=== PATIENT | male | born 1995 | race Caucasian/White ===

== ENCOUNTER 2016-12-12 02:26 | Emergency (ER) | payer SELFPAY ==
[~2016-12-12] VITALS: Ht 170.2 cm; Wt 88.5 kg
[~2016-12-12 02:26] MED LIST: UNOBMED
--- NOTE | 2016-12-12 02:37 | Emergency Room Report ---
History of Present Illness General Chief Complaint: Alcohol Intoxication Source: Patient (Sukh Mathews M.D.) Present Illness HPI The patient is brought in after being found unresponsive after alcohol consumption at the [facility]. Paramedics were summoned and evaluated the patient. Is transported by S. They claim there is no evidence of trauma. Uncertain if there patient has a gag reflex. She is been fighting they have wasted and soft restraints. (Sukh Mathews M.D.) Allergies: Coded Allergies: UNABLE TO ASSESS (Unverified , 12/12/16) Patient History Limited by: medical condition Past Medical History: see triage record Social History: Reports: alcohol use Reviewed Nursing Documentation: PMH: Agreed, PSxH: Agreed (Sukh Mathews M.D.) Nursing Documentation-PMH Past Medical History Deferred: Pt Cognitively Impaired (Sukh Mathews M.D.) Review of Systems All Other Systems: limited (Sukh Mathews M.D.) Physical Exam Vital Signs Date Time Temp Pulse Resp B/P Pulse Ox O2 Delivery O2 Flow Rate FiO2 12/12/16 02:22 94 16 124/64 98 Room Air Sp02 EP Interpretation: reviewed, normal General Appearance: no apparent distress, Stupor Head: normocephalic Eyes: bilateral eye PERRL, bilateral eye Scleral Injection ENT: moist mucus membranes Neck: supple, no bony tend Respiratory: lungs clear, normal breath sounds Cardiovascular #1: regular rate, rhythm Cardiovascular #2: 2+ radial (R) Gastrointestinal: normal inspection, non tender, no mass, non-distended, abnormal bowel sounds - decreased Genitourinary: normal inspection Musculoskeletal: back normal, other - no deformity Neurologic: other - stupor, min response to pain, + gag Psychiatric: other - stupor Skin: normal inspection, warm/dry (Sukh Mathews M.D.) Medical Decision Making Diagnostic Impression: Primary Impression: Acute alcoholic intoxication Qualified Codes: F10.929 - Alcohol use, unspecified with intoxication, unspecified ER Course The patient presents with stupor with alcohol in his breath. Differential includes acute intoxication, with light abnormality, brain bleeds, other toxic ingestion. Evaluation will do a CT of head and neck and chest x-ray. Lastly run also. The patient will receive IV hydration and observation. There is a gag and therefore does not need to be intubated at this time. Labs with elevated alcohol. CT head and neck no fx or bleed. CXR normal. Patient now nodding yes and no to questions. Still lethargic. Signed out to Dr. Arambula. Laboratory Tests Test 12/12/16 02:49 White Blood Count 5.9 K/UL (4.8-10.8) Red Blood Count 5.85 M/UL (4.70-6.10) Hemoglobin 16.7 G/DL (14.2-18.0) Hematocrit 51.1 % (42.0-52.0) Mean Corpuscular Volume 87 FL (80-99) Mean Corpuscular Hemoglobin 28.6 PG (27.0-31.0) Mean Corpuscular Hemoglobin Concent 32.7 G/DL (32.0-36.0) Red Cell Distribution Width 11.3 % (11.6-14.8) L Platelet Count 300 K/UL (150-450) Mean Platelet Volume 8.4 FL (6.5-10.1) Neutrophils (%) (Auto) 57.7 % (45.0-75.0) Lymphocytes (%) (Auto) 33.4 % (20.0-45.0) Monocytes (%) (Auto) 5.0 % (1.0-10.0) Eosinophils (%) (Auto) 2.6 % (0.0-3.0) Basophils (%) (Auto) 1.2 % (0.0-2.0) Sodium Level 144 mEQ/L (135-145) Potassium Level 3.7 mEQ/L (3.4-4.9) Chloride Level 101 mEQ/L (98-107) Carbon Dioxide Level 23 mEQ/L (20-30) Anion Gap 20 (5-15) H Blood Urea Nitrogen 9 mg/dL (7-23) Creatinine 0.9 mg/dL (0.7-1.2) Estimate Glomerular Filtration Rate > 60 mL/min (>60) Glucose Level 108 mg/dL (74-106) H Calcium Level 9.4 mg/dL (8.6-10.2) Total Bilirubin 0.5 mg/dL (0.0-1.2) Aspartate Amino Transferase (AST) 18 U/L (5-40) Alanine Aminotransferase (ALT) 16 U/L (3-41) Alkaline Phosphatase 54 U/L (40-129) Total Creatine Kinase 122 U/L (38-174) Total Protein 8.0 g/dL (6.6-8.7) Albumin 4.7 g/dL (3.5-5.2) Globulin 3.3 g/dL Albumin/Globulin Ratio 1.4 (1.0-2.7) Salicylates Level < 1 mg/dL (10-30) L Urine Opiates Screen Negative (NEGATIVE) Acetaminophen Level < 10 ug/mL (10-30) L Urine Barbiturates Screen Negative (NEGATIVE) Phencyclidine (PCP) Screen Negative (NEGATIVE) Urine Amphetamines Screen Negative (NEGATIVE) Urine Benzodiazepines Screen Negative (NEGATIVE) Urine Cocaine Screen Negative (NEGATIVE) Urine Marijuana (THC) Screen Positive (NEGATIVE) H Serum Alcohol 267 mg/dL (Sukh Mathews M.D.) ER Course Patient was noted to have initially confused mental status. Patient had gradual improvement of neurologic status. At the time of discharge the patient was alert and ambulatory without assistance and had a good plan for self care. Patient was advised to stop drinking alcohol. And to followup with outpatient therapy for alcohol treatment. (Marquise Arambula) EKG Diagnostic Results Rate: normal Rhythm: NSR ST Segments: no acute changes - early repol (Sukh Mathews M.D.) Rhythm Strip Diag. Results EP Interpretation: yes Rhythm: NSR, no PVC's, no ectopy (Sukh Mathews M.D.) Chest X-Ray Diagnostic Results Chest X-Ray Diagnostic Results : Chest X-Ray Ordered: Yes # of Views/Limited/Complete: 1 View Indication: Other EP Interpretation: Yes Interpretation: no consolidation, no effusion, no pneumothorax, no acute cardiopulmonary disease Impression: No acute disease Interpreting ER Provider: Electronically signed by Sukh Mathews MD (Sukh Mathews M.D.) CT/MRI/US Diagnostic Results CT/MRI/US Diagnostic Results : Imaging Test Ordered: head/c spine Impression no bleed/fractures (Sukh Mathews M.D.) Status: improved (Sukh Mathews M.D.) Status: improved (Marquise Arambula) Disposition: HOME, SELF-CARE Condition: Stable Sukh Mathews M.D. Dec 12, 2016 02:37 Marquise Arambula Dec 12, 2016 09:19
[2016-12-12 02:40] VITALS: BP 124/64
[2016-12-12 03:01] LABS: BASOPHILS % (AUTO) 1.2 % (0.0-2.0); EOSINOPHILS % (AUTO) 2.6 % (0.0-3.0); LYMPHOCYTES % (AUTO) 33.4 % (20.0-45.0); MEAN CORPUSCULAR HEMOGLOBIN 28.6 PG (27.0-31.0); MEAN CORPUSCULAR HGB CONC 32.7 G/DL (32.0-36.0); MEAN CORPUSCULAR VOLUME 87 FL (80-99); MEAN PLATELET VOLUME 8.4 FL (6.5-10.1); NEUTROPHILS % (AUTO) 57.7 % (45.0-75.0); PLATELET COUNT 300 K/UL (150-450); RED BLOOD COUNT 5.85 M/UL (4.70-6.10); RED CELL DISTRIBUTION WIDTH 11.3 % (11.6-14.8); WHITE BLOOD COUNT 5.9 K/UL (4.8-10.8)
[2016-12-12 03:18] LABS: ACETAMINOPHEN < 10 ug/mL (10-30); ALANINE AMINOTRANSFERASE 16 U/L (3-41); ALBUMIN/GLOBULIN RATIO 1.4 (1.0-2.7); ALCOHOL 267 mg/dL; ANION GAP 20 (5-15); ASPARTATE AMINO TRANSFERASE 18 U/L (5-40); CALCIUM 9.4 mg/dL (8.6-10.2); CARBON DIOXIDE 23 mEQ/L (20-30); CHLORIDE 101 mEQ/L (98-107); CREATININE 0.9 mg/dL (0.7-1.2); GLOMERULAR FILTRATION RATE > 60 mL/min (>60); HEMOLYSIS 7; POTASSIUM 3.7 mEQ/L (3.4-4.9); SODIUM 144 mEQ/L (135-145)
[2016-12-12 04:41] VITALS: BP 120/68
[2016-12-12 06:50] VITALS: BP 126/66
[2016-12-12 09:09] VITALS: BP 123/67
[2016-12-12 09:17] VITALS: BP 123/67
--- NOTE | 2016-12-12 10:23 | Diagnostic Imaging Report ---
Indication: Altered level of consciousness/pain Technique: CT cervical spine was performed utilizing automated exposure control without intravenous contrast material. Axial and coronal images were generated. CT dose: Total DLP 1369 mGycm; CTDI vol 70.4 mGy Comparison: None Findings: There is no acute fracture. Cervical alignment is within normal limits. Prevertebral soft tissues are within normal limits. The visualized lung apices are clear. Impression: No acute fracture or cervical malalignment. The CT scanner at [facility] is accredited by the [employer] and the scans are performed using protocols designed to limit radiation exposure to as low as reasonably achievable to attain images of sufficient resolution adequate for diagnostic evaluation.
--- NOTE | 2016-12-12 10:25 | Diagnostic Imaging Report ---
Indication: Altered level of consciousness Technique: Continuous helical CT scanning of the head was performed utilizing automated exposure control without intravenous contrast material. Axial and coronal reconstructions were obtained. Comparison: None CT dose: Total DLP 1369 mGycm; CTDI vol 70.4 mGy Findings: There is no acute intracranial hemorrhage, mass effect or cortical edema. The ventricles, cisterns and sulci are within normal limits. The posterior fossa and fourth ventricle are unremarkable. Sellar and suprasellar regions are grossly unremarkable. Mastoid air cells are clear. There is mucosal thickening of the ethmoid and maxillary sinuses with a retention cyst or polyp of the right maxillary sinus. No focal lesions of the bony calvarium or soft tissues of the scalp are seen. Impression: No evidence of acute intracranial hemorrhage, mass effect or cortical edema. MRI may be obtained for more sensitive evaluation as clinically indicated. Sinus disease. The CT scanner at [facility] is accredited by the [employer] and the scans are performed using protocols designed to limit radiation exposure to as low as reasonably achievable to attain images of sufficient resolution adequate for diagnostic evaluation.
--- NOTE | 2016-12-12 10:55 | Diagnostic Imaging Report ---
Indication: Chest pain Technique: XRAY CHEST 1 V Comparison: None Findings: The cardiomediastinal silhouette is within normal limits. There is no focal consolidation, pneumothorax or pleural effusion. Osseous structures demonstrate no acute abnormality. Impression: No acute cardiopulmonary disease.
== END 2016-12-12 09:17 | disposition home or self-care (01) ==
LOC: EDBD 02:26 → EMR 02:47
DX: F10.929 Alcohol use, unspecified with intoxication, unspecified (principal); R41.82 Altered mental status, unspecified; R52 Pain, unspecified; R07.9 Chest pain, unspecified
CPT/HCPCS: 36415; 70450; 71010; 72125; 80053; 80300; 82550; 85025; 93005; 96361; 96374; 99284; G0480; J2405; 80329